=== PATIENT | female | born 1990 | race Caucasian/White ===

== ENCOUNTER 2016-08-04 20:16 | Emergency (ER) | payer OTHER ==
--- NOTE | 2016-08-04 22:38 | ED ---
Skin Complaint - HPI Summary HPI Summary: 25 female presents with complaints of "boils" on her neck (2) and axilla (1). Patient states she has chronic history of similar episodes in the past. Denies any drainage. Admits to pain and redness. Previously took antibiotics for these when she lived in [place] however she does not remember the name. Denies fever/ chills and any other rash on her body.. - History of Current Complaint Chief Complaint: EDRashSkinAbscess Time Seen by Provider: 08/04/16 21:59 Stated Complaint: BOIL Hx Obtained From: Patient Onset/Duration: Started Weeks Ago Skin Exposure Onset/Duration: Weeks Ago Timing: Constant Onset Severity: Moderate Current Severity: Moderate Pain Intensity: 8 Pain Scale Used: 0-10 Numeric Skin Location: Neck, Arm - right axilla Character: Redness, Raised, Painful Aggravating Symptom(s): Nothing Alleviating Symptom(s): Nothing Associated Signs & Symptoms: Negative - Allergy/Home Medications Allergies/Adverse Reactions: Allergies Allergy/AdvReac Type Severity Reaction Status Date / Time Latex Allergy Hives Verified 08/04/16 20:28 Penicillins Allergy Anaphylatic Verified 08/04/16 20:28 Shock PMH/Surg Hx/FS Hx/Imm Hx Previously Healthy: Yes Endocrine/Hematology History: Reports: Hx Diabetes Respiratory History: Reports: Hx Asthma, Hx Chronic Obstructive Pulmonary Disease (COPD) Psychiatric History: Reports: Hx Attention Deficit Hyperactivity Disorder, Hx Depression, Hx Bipolar Disorder - Surgical History Hx Anesthesia Reactions: No - Immunization History Immunizations Up to Date: Yes Infectious Disease History: No Infectious Disease History: Denies: Traveled Outside the [place] in Last 30 Days - Family History Known Family History: Positive: Diabetes Review of Systems Constitutional: Negative Eyes: Negative ENT: Negative Cardiovascular: Negative Respiratory: Negative Positive: Rash - boils Neurological: Negative Psychological: Normal All Other Systems Reviewed And Are Negative: Yes Physical Exam Triage Information Reviewed: Yes Vital Signs On Initial Exam: Initial Vitals Temp Pulse Resp BP Pulse Ox 98.7 F 96 18 136/67 97 08/04/16 20:22 08/04/16 20:22 08/04/16 20:22 08/04/16 20:22 08/04/16 20:22 Vital Signs Reviewed: Yes Appearance: Positive: Well-Appearing, No Pain Distress, Well-Nourished Skin: Positive: Warm, Skin Color Reflects Adequate Perfusion, Dry, Erythema @ - right axilla and left neck, right neck. raised, tender carbuncle/furuncles noted. firm without drainage. non-pruritic. right lateral neck is barely raised and smalle in size about .5cm width. without pus formation. did not appear to be ready for I&D at this time. no red streaks, warmth or signs of spreading infection/cellulitits at this time. Head/Face: Positive: Normal Head/Face Inspection Eyes: Positive: Normal, Conjunctiva Clear ENT: Positive: Hearing grossly normal, Pharynx normal, TMs normal Dental: Negative: Percussion Tenderness @, Cervical Lymphadenopathy Neck: Positive: Supple Respiratory/Lung Sounds: Positive: Clear to Auscultation, Breath Sounds Present Cardiovascular: Positive: Normal, RRR, Pulses are Symmetrical in both Upper and Lower Extremities Abdomen Description: Positive: Nontender Bowel Sounds: Positive: Present Musculoskeletal: Positive: Normal, Strength/ROM Intact Neurological: Positive: Normal, Sensory/Motor Intact, Alert, Oriented to Person Place, Time Psychiatric: Positive: Normal Diagnostics - Vital Signs Vital Signs Temp Pulse Resp BP Pulse Ox 08/04/16 20:22 98.7 F 96 18 136/67 97 - Laboratory Lab Statement: Any lab studies that have been ordered have been reviewed, and results considered in the medical decision making process. Course/Dx - Course Course Of Treatment: patient will started on a trial of oral antibiotics. also told to use triple antibiotic cream and hot packs on them. also told to take ibuprofen/tylenol for pain. will be reffered to dermatology to have further evaluation in 7 days after antibiotic for possible I&D. Dr Hammer agreed with this plan and told not to I&D at this time without trying an antibiotic first. - Differential Diagnoses - Skin Complaint Differential Diagnoses: Abscess, Cellulitis, MRSA - Diagnoses Provider Diagnoses: Carbuncle and furuncle of neck, Carbuncle of right axilla - Physician Notifications Discussed Care Of Patient With: Dr Hammer Discharge - Discharge Plan Condition: Stable Disposition: HOME Prescriptions: Clindamycin CAP* [Cleocin 150 MG CAP*] 150 mg PO TID #30 cap Referrals: [facility] [Outside] Karla Coppola [Medical Doctor] - Additional Instructions: Take prescribed antibiotics for the next 10 days. Try using a triple antibiotic ointment and hot packs on the boils. Follow-up with dermatology if symptoms do not improve and for further evaluation/procedure. If you develop fever/chills, increasing redness, or discharge please seek medical attention.
[2016-08-04] MEDS ORDERED: Clindamycin CAP* 150 MG PO ONE (23:00)
[2016-08-04 23:55] VITALS: BP 117/70
== END 2016-08-04 23:53 | disposition home or self-care (01) ==
LOC: ED 20:16
DX: L02.13 Carbuncle of neck (principal); L02.431 Carbuncle of right axilla; R21 Rash and other nonspecific skin eruption; Z88.0 Allergy status to penicillin
CPT/HCPCS: 99285; A9270-GY